=== PATIENT | female | born 1965 | race Caucasian/White ===

== ENCOUNTER 2019-12-04 13:35 | Outpatient (CLI) | payer MEDICAID | END 2019-12-04 13:36 | disposition home or self-care (01) | LOC: LAB 13:35 | PROVIDERS: ATTEND Surgery | DX: Z01.812 Encounter for preprocedural laboratory examination (principal); R22.2 Localized swelling, mass and lump, trunk; Z20.828 Contact with and (suspected) exposure to other viral communicable diseases ==